=== PATIENT | female | born 1945 | race Caucasian/White ===

== ENCOUNTER 2017-12-18 00:03 | Inpatient (IN) | payer MEDICARE ==
[~2017-12-18] VITALS: Ht 170.2 cm; Wt 81.6 kg
[2017-12-18] MEDS ORDERED: ROPINIROLE HCL 5 MG PO (00:14)
[2017-12-18] MEDS ORDERED: CARBIDOPA LEVODOPA ENTA PO (00:14)
[2017-12-18] MEDS ORDERED: IV NORMAL SALINE 500 ML BAG IV ONE (01:00)
[2017-12-18 01:49] LABS: BASOPHILS % (AUTO) 0.6 % (0.0-2.0); EOSINOPHILS # (AUTO) 0.1 K/uL (0.0-0.7); EOSINOPHILS % (AUTO) 1.6 % (0.0-7.0); HEMATOCRIT 39.3 % (31.2-41.9); LYMPHOCYTES # (AUTO) 1.4 K/uL (20.0-40.0); LYMPHOCYTES % (AUTO) 18.4 % (20.5-51.5); MEAN CORPUSCULAR HEMOGLOBIN 33.5 uug (24.7-32.8); MEAN CORPUSCULAR HGB CONC 33 g/dL (32.3-35.6); MONOCYTES # (AUTO) 0.6 K/uL (2.0-10.0); MONOCYTES % (AUTO) 7.3 % (0.0-11.0); NEUTROPHILS # (AUTO) 5.5 K/uL (1.8-8.9); NEUTROPHILS % (AUTO) 72.1 % (38.5-71.5); PLATELET COUNT (AUTO) 232 K/uL (179-408); RED BLOOD CELL COUNT(AUTO) 3.89 MIL/uL (3.63-4.92); WHITE BLOOD COUNT (AUTO) 7.6 K/uL (3.8-11.8)
[2017-12-18 01:59] LABS: ALANINE AMINOTRANSFERASE 9 U/L (14-59); ALKALINE PHOSPHATASE 86 U/L (50-136); ASPARTATE AMINOTRANSFERASE < 5 U/L (15-37); BILIRUBIN,DIRECT 0.2 mg/dL (0.0-0.2); BILIRUBIN,TOTAL 0.7 mg/dL (0.2-1.0); CARBON DIOXIDE 28 mmol/L (21-32); CHLORIDE 103 mmol/L (98-107); CREATININE 1.1 mg/dL (0.6-1.3); GLUCOSE 127 mg/dL (74-106); TOTAL PROTEIN, SERUM 7.1 g/dL (6.4-8.2); UREA NITROGEN, BLOOD 19 mg/dL (7-18)
--- NOTE | 2017-12-18 02:00 | NUR ---
assumed care of patient at this time, no report from triage nurse. patient is alert/oriented x 3. patient denies any complaint of chest pain, shortness of breath, nausea or vomiting. assisted patient to rest room to obtain urine, helped patient back into stretcher and obtained ekg, and started ivg.
[2017-12-18 03:19] LABS: *BLOOD, URINE NEGATIVE (NEGATIVE); *CLARITY,URINE CLOUDY (CLEAR); *COLOR,URINE DARK YELLOW (YELLOW); *KETONES,URINE 1+ (NEGATIVE); *PROTEIN,URINE 2+ (NEGATIVE); *UROBILINOGEN,URINE 0.2 E.U./dl (NORMAL); LEUKOCYTE ESTERASE ,URINE 1+ (NEGATIVE); NITRITE, URINE POSITIVE (NEGATIVE); UGLUCOSE TRACE (NEGATIVE)
[2017-12-18 03:33] LABS: *BILIRUBIN,URIN 1+ (NEGATIVE)
[2017-12-18 03:39] LABS: WBC,URINE 80-100 /HPF (0-3)
[2017-12-18 03:40] LABS: BACTERIA,URINE MANY /HPF (NONE SEEN)
[2017-12-18 03:42] LABS: CALCIUM OXALATE CRYSTALS,UR MANY /HPF (NONE SEEN); SQUAMOUS EPITHELIAL CELL,UR MODERATE /HPF (NONE SEEN); YEAST,URINE FEW /HPF (NONE SEEN)
--- NOTE | 2017-12-18 03:44 | NUR ---
report called to ady
[2017-12-18 04:30] VITALS: BP 112/55
--- NOTE | 2017-12-18 05:00 | NUR ---
Received patient from ER in stable condition. No acute distress noted. Vital signs within range. New admit to tele unit under PURCHASING SPECIALIST Sari French. Admit Dx Syncope. Sinus rhythm on tele monitor. Patient is A/Ox1-2 with some confusion. Able to make her needs known. Pertinent assessment completed upon admission. Noted with right wrist 20G IV site which is patent & flushing well. Skin is intact. Bed in low position, locked, x2 side rails up. Call light within reach of patient. Will continue to monitor through shift.
[2017-12-18] MEDS ORDERED: HYDROCODONE/APAP 5-325MG TABLET PO PRN (06:15)
[2017-12-18] MEDS ORDERED: MAGNESIUM HYDROXIDE 30 ML LIQUID UDC PO PRN (06:15)
[2017-12-18] MEDS ORDERED: Z GUARD REMEDY PASTE 57 GM TUBE TOP PRN (06:15)
[2017-12-18] MEDS ORDERED: ZOLPIDEM 5 MG TABLET PO PRN (06:15)
[2017-12-18] MEDS ORDERED: ACETAMINOPHEN 325 MG TABLET PO PRN (06:15)
[2017-12-18] MEDS ORDERED: ONDANSETRON 4 MG/2 ML VIAL IV PRN (06:15)
[2017-12-18] MEDS: IV NS 1000 ML 1,000 ML IV PRN ×2 (06:22→23:11)
[2017-12-18] MEDS ORDERED: CEFTRIAXONE 1 G VIAL ONE (06:44)
[2017-12-18] MEDS ORDERED: NORMAL SALINE FLUSH 10 ML DISP.SYRIN ONE (06:45)
[2017-12-18] MEDS ORDERED: IOHEXOL 350 100 ML INFUS..BTL ONE (06:45)
[2017-12-18] MEDS ORDERED: IV NORMAL SALINE 0 ML IV ONE (06:45)
[2017-12-18] MEDS ORDERED: SWABABLE VALVE TRANSFER SET EA MC ONE (06:45)
--- NOTE | 2017-12-18 06:47 | NUR ---
Patient stable through shift. No acute distress. Vital signs within range. Sinus rhythm on the tele monitor with HR of 68. Denies pain & SOB. IV NS running through right wrist at 75cc/hr per MD order. No signs of infiltration noted at IV site. All needs attended to. Medications administered per MD order. Safety measures implemented. Will endorse to day shift nurse.
[2017-12-18] MEDS ORDERED: ENOXAPARIN SODIUM 40 MG/0.4 ML DISP.SYRIN SQ ONE (07:00)
--- NOTE | 2017-12-18 07:20 | NUR ---
RECEIVED REPORT FROM PORT PATROL OFFICER NURSE, PATIENT IN BED AWAKE, NO DISTRESS NOTED AT THIS TIME, BED IN LOW POSITION, SIDE RAILS UP X2, BED ALARM ON.
[2017-12-18] MEDS: CEFTRIAXONE 1 G in IV DEXTROSE 5% 50 ML IV SCH (08:36)
[2017-12-18 11:02] VITALS: BP 135/65
[2017-12-18 12:28] LABS: CARBON DIOXIDE 26 mmol/L (21-32); CHLORIDE 108 mmol/L (98-107); GLUCOSE 126 mg/dL (74-106); POTASSIUM 3.8 mmol/L (3.5-5.1); UREA NITROGEN, BLOOD 19 mg/dL (7-18)
[2017-12-18 12:40] LABS: BASOPHILS % (AUTO) 0.6 % (0.0-2.0); EOSINOPHILS # (AUTO) 0.1 K/uL (0.0-0.7); EOSINOPHILS % (AUTO) 2.3 % (0.0-7.0); HEMATOCRIT 34.6 % (31.2-41.9); HEMOGLOBIN 11.7 g/dL (10.9-14.3); LYMPHOCYTES # (AUTO) 1.5 K/uL (20.0-40.0); LYMPHOCYTES % (AUTO) 26.9 % (20.5-51.5); MEAN CORPUSCULAR HGB CONC 34 g/dL (32.3-35.6); MEAN CORPUSCULAR VOLUME 100.9 fL (75.5-95.3); MONOCYTES # (AUTO) 0.5 K/uL (2.0-10.0); MONOCYTES % (AUTO) 8.5 % (0.0-11.0); NEUTROPHILS # (AUTO) 3.5 K/uL (1.8-8.9); NEUTROPHILS % (AUTO) 61.7 % (38.5-71.5); PLATELET COUNT (AUTO) 212 K/uL (179-408); RED BLOOD CELL COUNT(AUTO) 3.43 MIL/uL (3.63-4.92); WHITE BLOOD COUNT (AUTO) 5.8 K/uL (3.8-11.8)
[2017-12-18 15:34] VITALS: BP 137/53
[2017-12-18] MEDS ORDERED: CARBIDOPA LEVODOPA ENTA PO SCH (17:00)
[2017-12-18] MEDS ORDERED: ROPINIROLE HCL 5 MG PO SCH (17:00)
--- NOTE | 2017-12-18 18:32 | NUR ---
Patient has been cooperative with care, all needs met. No distress noted throughout shift, bed in low position, side rails up x2, bed alarm on. Patient's family brought in own medications, and they were taken down to the pharmacy.
--- NOTE | 2017-12-18 19:30 | NUR ---
Patient stable at start of shift. No acute distress. Vital signs within range. Sinus rhythm on the tele monitor with HR of 87. Pertinent assessment completed. Currently lying in bed comfortably, alert, awake, oriented x2-3 & able to make most of her needs known. IV NS running into right wrist at 75cc/hr. No infiltration noted at site. Bed in low position, bed alarm placed on. Call light within reach. Will continue to monitor through shift.
[2017-12-18 20:00] VITALS: BP 124/63
[2017-12-18] MEDS: CARBIDOPA LEVODOPA ENTA PO SCH (20:00)
[2017-12-18] MEDS: ROPINIROLE 5 MG PO SCH (20:00)
[2017-12-19] VITALS: BP 141/60
[2017-12-19 04:00] VITALS: BP 108/66
[2017-12-19 06:12] LABS: BASOPHILS # (AUTO) 0.1 K/uL (0.0-8.0); BASOPHILS % (AUTO) 0.9 % (0.0-2.0); EOSINOPHILS # (AUTO) 0.2 K/uL (0.0-0.7); EOSINOPHILS % (AUTO) 3.6 % (0.0-7.0); HEMATOCRIT 34.2 % (31.2-41.9); HEMOGLOBIN 11.8 g/dL (10.9-14.3); LYMPHOCYTES # (AUTO) 2.3 K/uL (20.0-40.0); LYMPHOCYTES % (AUTO) 40.5 % (20.5-51.5); MEAN CORPUSCULAR HEMOGLOBIN 34.6 uug (24.7-32.8); MEAN CORPUSCULAR HGB CONC 34 g/dL (32.3-35.6); MEAN CORPUSCULAR VOLUME 100.7 fL (75.5-95.3); MONOCYTES # (AUTO) 0.5 K/uL (2.0-10.0); MONOCYTES % (AUTO) 8.2 % (0.0-11.0); NEUTROPHILS # (AUTO) 2.6 K/uL (1.8-8.9); NEUTROPHILS % (AUTO) 46.8 % (38.5-71.5); PLATELET COUNT (AUTO) 208 K/uL (179-408); WHITE BLOOD COUNT (AUTO) 5.6 K/uL (3.8-11.8)
[2017-12-19] MEDS: PANTOPRAZOLE SODIUM 40 MG TABLET.DR PO SCH (06:27)
[2017-12-19 06:35] LABS: ALANINE AMINOTRANSFERASE 8 U/L (14-59); ALKALINE PHOSPHATASE 74 U/L (50-136); ASPARTATE AMINOTRANSFERASE 8 U/L (15-37); BILIRUBIN,TOTAL 0.5 mg/dL (0.2-1.0); CARBON DIOXIDE 26 mmol/L (21-32); CHLORIDE 109 mmol/L (98-107); CHOLESTEROL 149 mg/dL (<200); GLUCOSE 99 mg/dL (74-106); HDL CHOLESTEROL 37 mg/dL (40-60); MAGNESIUM 1.8 mg/dL (1.8-2.4); PHOSPHOROUS 2.9 mg/dL (2.5-4.9); POTASSIUM 3.7 mmol/L (3.5-5.1); TOTAL PROTEIN, SERUM 6.1 g/dL (6.4-8.2); TRIGLYCERIDES 156 MG/DL (30-150); UREA NITROGEN, BLOOD 18 mg/dL (7-18)
--- NOTE | 2017-12-19 06:37 | NUR ---
STABLE THROUGH SHIFT. VITAL SIGNS WITHIN RANGE. SINUS RHYTHM ON TELE MONITOR WITH HR OF 68. ALL NEEDS ATTENDED TO. PATIENT KEPT CLEAN, DRY, CHANGED PER DIAPER SOILING. NOTED WITH INCREASED CONFUSION DURING THE SHIFT. PULLED OUT IV LINE X1 DURING THE SHIFT. IV REINSERTED INTO RIGHT HAND 22G. ALL MEDICATIONS ADMINISTERED PER MD ORDER. SAFETY MEASURES IMPLEMENTED. CALL LIGHT IN REACH. WILL ENDORSE TO ONCOMING SHIFT.
[2017-12-19 06:44] LABS: THYROID STIMULATING HORMONE 6.458 mIU/mL (0.358-3.740)
--- NOTE | 2017-12-19 07:10 | NUR ---
RECEIVED REPORT FROM BREEDER HEN SERVICE TECHNICIAN NURSE, PATIENT IN BED ASLEEP, NO DISTRESS NOTED AT THIS TIME, BED IN LOW POSITION, SIDE RAILS UP X2. BED ALARM SET.
[2017-12-19] MEDS ORDERED: SWABABLE VALVE TRANSFER SET EA MC ONE (08:20)
[2017-12-19] MEDS: ROPINIROLE 5 MG PO SCH ×4 (09:21→20:54)
[2017-12-19] MEDS: CARBIDOPA LEVODOPA ENTA PO SCH ×4 (09:21→20:54)
[2017-12-19] MEDS: ENOXAPARIN SODIUM 40 MG/0.4 ML DISP.SYRIN SQ SCH (09:24)
[2017-12-19] MEDS: CEFTRIAXONE 1 G in IV DEXTROSE 5% 50 ML IV SCH (09:27)
[2017-12-19 11:47] VITALS: BP 134/66
[2017-12-19] MEDS ORDERED: LORAZEPAM 2 MG/1 ML VIAL IV PRN (13:30)
[2017-12-19 15:50] VITALS: BP 127/60
[2017-12-19] MEDS: IV NS 1000 ML 1,000 ML IV PRN (18:58)
[2017-12-19 20:00] VITALS: BP 128/63
--- NOTE | 2017-12-19 20:00 | NUR ---
RECEIVED PATIENT AWAKE IN BED. ALERT TO SELF ONLY. DENIES PAIN OR DISCOMFORT. NO FACIAL GRIMACE NOTED. NO RESP. DISTRESS NOTED. ON RA. PATIENT ON TELE SR. VS WNL. IVF INFUSING WELL TO RIGHT FA. BED ALARM ON. CALL LIGHT IN REACH. ALL NEEDS ATTENDED. WILL CONTINUE TO MONITOR AND ASSESS.
[2017-12-20] VITALS: BP 135/68
[2017-12-20 04:00] VITALS: BP 127/63
[2017-12-20] MEDS: PANTOPRAZOLE SODIUM 40 MG TABLET.DR PO SCH (06:00)
--- NOTE | 2017-12-20 06:35 | NUR ---
PATIENT ASLEEP IN BED. SLEPT WELL. IVF INFUSING WELL. BED ALARM ON. ALL NEEDS ATTENDED. WILL CONTINUE TO MONITOR AND ASSESS.
--- NOTE | 2017-12-20 07:09 | NUR ---
ON TELE SR.
[2017-12-20 07:14] LABS: BASOPHILS % (AUTO) 0.7 % (0.0-2.0); EOSINOPHILS # (AUTO) 0.3 K/uL (0.0-0.7); EOSINOPHILS % (AUTO) 4.7 % (0.0-7.0); HEMATOCRIT 34.3 % (31.2-41.9); HEMOGLOBIN 11.8 g/dL (10.9-14.3); LYMPHOCYTES # (AUTO) 2.3 K/uL (20.0-40.0); MEAN CORPUSCULAR HEMOGLOBIN 34.4 uug (24.7-32.8); MEAN CORPUSCULAR HGB CONC 34 g/dL (32.3-35.6); MEAN CORPUSCULAR VOLUME 100.3 fL (75.5-95.3); MONOCYTES # (AUTO) 0.5 K/uL (2.0-10.0); MONOCYTES % (AUTO) 8.7 % (0.0-11.0); NEUTROPHILS # (AUTO) 2.6 K/uL (1.8-8.9); NEUTROPHILS % (AUTO) 45.9 % (38.5-71.5); PLATELET COUNT (AUTO) 206 K/uL (179-408); RED BLOOD CELL COUNT(AUTO) 3.42 MIL/uL (3.63-4.92); WHITE BLOOD COUNT (AUTO) 5.6 K/uL (3.8-11.8)
[2017-12-20 07:22] LABS: CARBON DIOXIDE 24 mmol/L (21-32); CHLORIDE 106 mmol/L (98-107); CREATININE 0.8 mg/dL (0.6-1.3); GLUCOSE 106 mg/dL (74-106); MAGNESIUM 1.8 mg/dL (1.8-2.4); PHOSPHOROUS 3.4 mg/dL (2.5-4.9); POTASSIUM 3.6 mmol/L (3.5-5.1); UREA NITROGEN, BLOOD 12 mg/dL (7-18)
--- NOTE | 2017-12-20 08:00 | NUR ---
AWAKE FORGETFUL ORTX1 NAME BUT ABLE TO FOLLOW SIMPLE DIRECTION ON FALL AND ASPIRATION PRECAUTION BED ALARM ON AND CALL LIGHT IN REACH
[2017-12-20] MEDS: CEFTRIAXONE 1 G in IV DEXTROSE 5% 50 ML IV SCH (08:46)
[2017-12-20] MEDS: ENOXAPARIN SODIUM 40 MG/0.4 ML DISP.SYRIN SQ SCH (08:47)
[2017-12-20] MEDS: ROPINIROLE 5 MG PO SCH ×4 (08:49→20:08)
[2017-12-20] MEDS: CARBIDOPA LEVODOPA ENTA PO SCH ×4 (08:49→20:08)
[2017-12-20] MEDS: IV NS 1000 ML 1,000 ML IV PRN (08:49)
--- NOTE | 2017-12-20 10:00 | NUR ---
OOB UP AMBULATE WITH PT IN THE [address] DOING WELL DR PARSON SEEN PATIENT THIS AM AND NEW ORDER IN CHART
[2017-12-20 11:17] VITALS: BP 138/58
--- NOTE | 2017-12-20 12:00 | NUR ---
EEG DOME AT BEDSIDE SUDHA PROCEDURE WELL
[2017-12-20 15:41] VITALS: BP 132/56
--- NOTE | 2017-12-20 18:00 | NUR ---
PATIENT WILL DISCHARGE TO ARU AT [facility] TO NIGHT WITH SAME ORDERED AND FAMILY DAUGHTER WAS INFORM ,AWARE OF D/C TODAY
--- NOTE | 2017-12-20 18:15 | NUR ---
STABLE CONDITION ,NO ACUTE DISTRESS SAFETY MEASURE PROVIDED CALL LIGHT IN REACH AND BED ALARM ON
[2017-12-20] MEDS ORDERED: INFLUENZA VACCINE 2018-2019 0.5 ML DISP.SYRIN IM ONE (18:30)
--- NOTE | 2017-12-20 19:10 | NUR ---
RECEIVED PT AWAKE ON BED, AAOX1, NO SIGNS OF ACUTE DISTRESS NOTED AT THIS TIME. IV SITE ON RFA PATENT AND INTACT. SAFETY MEASURES INITIATED, PLACED BED ON LOW AND LOCKED POSITION, PT BELONGINGS AND CALL MARIN WITHIN REACH.
[2017-12-20 19:23] VITALS: BP 124/56
--- NOTE | 2017-12-20 21:30 | NUR ---
PT DISCHARGE TO REHAB UNIT IN STABLE CONDITION VIA WHEELCHAIR. SBAR REPORT GIVEN TO MACIEL ZAVALA. DISCHARGE PROTOCOL FOLLOWED. ALL DUE MEDS GIVEN ORDERED. IV SITE ON RFA, PATENT AND INTACT. ALL NEEDS ATTENDED AND MET.
[2017-12-20] MEDS ORDERED: CEFT1VIA15 IV (22:10)
[2017-12-20] MEDS ORDERED: MAGN400O6 PO (22:10)
[2017-12-20] MEDS ORDERED: ACET-2154 PO (22:10)
[2017-12-20] MEDS ORDERED: PANT40TA2 PO (22:10)
[2017-12-20] MEDS ORDERED: ENOX40DI SQ (22:10)
[2017-12-20] MEDS ORDERED: LORA2VIA33 IV (22:10)
[2017-12-20] MEDS ORDERED: ZOLP5TAB2 PO (22:10)
[2017-12-20] MEDS ORDERED: ONDA4VIA52 IV (22:10)
[2017-12-20] MEDS ORDERED: HYDR-3326 PO (22:10)
== END 2017-12-20 21:52 | DRG 689 ==
LOC: ER 00:09 → MED 04:10 → TELE 04:39 → MED 12-20 16:44
PROVIDERS: ADMIT Nurse Practitioner Acute Care; ATTEND Nurse Practitioner Acute Care
DX: N39.0 Urinary tract infection, site not specified (principal); G93.41 Metabolic encephalopathy; J96.01 Acute respiratory failure with hypoxia; F02.81 Dementia in other diseases classified elsewhere, unspecified severity, with behavioral disturbance; E86.0 Dehydration; R55 Syncope and collapse; R94.31 Abnormal electrocardiogram [ECG] [EKG]; G30.9 Alzheimer's disease, unspecified; G20 Parkinson's disease; Z79.899 Other long term (current) drug therapy; I65.23 Occlusion and stenosis of bilateral carotid arteries; E78.1 Pure hyperglyceridemia; I08.1 Rheumatic disorders of both mitral and tricuspid valves; R56.9 Unspecified convulsions
CPT/HCPCS: 36415; 70030-TC; 70450; 71045; 83735; 84100; 84443; 85025; 85730; 87040; 87077; 87086; 90686; 93005; 93307; 95819; 97110; 97116; 97530; A4663; G0378; J0696; J1650; J2060; J3490; J7030; J7050; J7060; Q9967

== ENCOUNTER 2017-12-20 17:56 | Inpatient (IN) | payer MEDICARE ==
[~2017-12-20] VITALS: Ht 170.2 cm; Wt 90.7 kg
[~2017-12-20 17:56] MED LIST: CARBIDOPA LEVODOPA ENTA PO; ROPINIROLE HCL 5 MG PO
[2017-12-20] MEDS ORDERED: Z GUARD REMEDY PASTE 57 GM TUBE TOP PRN (22:00)
[2017-12-20] MEDS ORDERED: ONDA4VIA52 IV (22:10)
[2017-12-20] MEDS ORDERED: CEFT1VIA15 IV (22:10)
[2017-12-20] MEDS ORDERED: ACET-2154 PO (22:10)
[2017-12-20] MEDS ORDERED: LORA2VIA33 IV (22:10)
[2017-12-20] MEDS ORDERED: ZOLP5TAB2 PO (22:10)
[2017-12-20] MEDS ORDERED: HYDR-3326 PO (22:10)
[2017-12-20] MEDS ORDERED: ENOX40DI SQ (22:10)
[2017-12-20] MEDS ORDERED: MAGN400O6 PO (22:10)
[2017-12-20] MEDS ORDERED: PANT40TA2 PO (22:10)
[2017-12-20 22:24] VITALS: BP 142/77
--- NOTE | 2017-12-20 22:45 | NUR ---
Dr. Escobedo made aware of admission. Informed Dr. Rebolledo of pt admission and informed of med recon.
--- NOTE | 2017-12-20 23:36 | NUR ---
Admitting this 72 y/o female from 2nd floor med-surg to acute rehab with diagnosis of Convulsive Syncope, Parkinson's Disease, and Metabolic Encephalopathy. Arrived via wheelchair, assisted into bed. No acute distress noted. All routine admission care done. A/O x 1, to self. Seizure precautions implemented. Verbally responsive and able to make needs known. Denies pain or discomfort at this time. Pictures taken and placed in chart. Oriented to unit and room. All safety measures and fall precautions maintained. Call light and all personal belongings within reach. Will continue to monitor.
[2017-12-21 07:01] VITALS: BP 120/56
[2017-12-21 08:30] VITALS: BP 146/73
--- NOTE | 2017-12-21 10:26 | NUR ---
Received pt. in bed with eyes closed comfortable. Pt. A/OX1 to self only, frequent re-orientation provided. Pt. in no acute distress. Denies CP or SOB. Notified Dr. Rebolledo for Med MD sharath on-site to complete recon. All safety measures and fall precaution in placed. RFA PIV C/D/I. All pt. need promptly attended at this time. Kept pt. clean and dry. Will continue to monitor pt. accordingly.
[2017-12-21] MEDS ORDERED: ONDANSETRON 4 MG/2 ML VIAL IV PRN (11:30)
[2017-12-21] MEDS ORDERED: HYDROCODONE/APAP 5-325MG TABLET PO PRN (11:30)
[2017-12-21] MEDS ORDERED: MAGNESIUM HYDROXIDE 30 ML LIQUID UDC PO PRN (11:30)
--- NOTE | 2017-12-21 12:09 | NUR ---
WOUND CARE CONSULT: PT PRESENTS WITH INCONTINENCE, DRY ESCHAR TO RT LATERAL ANKLE AND MOIST AREAS TO SKIN FOLDS, PRESENT ON ADMISSION. RECOMMENDATIONS MADE FOR SKIN PROTECTION AND CARE. DISCUSSED WITH NURSING STAFF. PT ABLE TO ASSIST WITH TURNING AND REPOSITIONING IN BED. WILL SEE PRN. GOTTI IN AGREEMENT WITH PLAN OF CARE. Addendum: 12/21/17 at 1211 by KING ESCAMILLA RN Amended: Links added.
[2017-12-21] MEDS: [UNRECOGNIZED DRUG - OTHER] PO SCH ×3 (12:27→20:31)
[2017-12-21] MEDS: ROPINIROLE 5 MG PO SCH ×3 (12:27→20:30)
[2017-12-21] MEDS: [UNRECOGNIZED DRUG - OTHER] PO SCH ×3 (12:27→20:30)
[2017-12-21] MEDS: ENOXAPARIN SODIUM 40 MG/0.4 ML DISP.SYRIN SQ SCH (12:28)
[2017-12-21] MEDS: CEFTRIAXONE 1 G in IV DEXTROSE 5% 50 ML IV SCH (12:50)
[2017-12-21] MEDS ORDERED: CARBIDOPA LEVODOPA ENTA PO SCH (13:00)
[2017-12-21] MEDS ORDERED: ROPINIROLE HCL 5 MG PO SCH (13:00)
[2017-12-21 16:44] VITALS: BP 131/100
--- NOTE | 2017-12-21 18:34 | NUR ---
EOS Note: No significant changed during this shift. Pt. A/OX1 to self only able to follow simple commands. All due medications given as ordered and tolerated well. Pt. seen and evaluated today by Dr. Rebolledo, med recon completed by . Pt. on IV ABX for UTI till further order, dose given today as ordered, no ASE noted. Pt. eval by wound nurse today with recommendation to apply mepilex border to RT. lateral ankle for dry eschar. PIV on RFA intact and patent.All pt. needs promptly provided and met. Safety measures in place. Call light and all frequently used items within pt. reach. Will endorse to oncoming shift accordingly.
[2017-12-21 20:00] VITALS: BP 134/61
--- NOTE | 2017-12-21 20:10 | NUR ---
Patient received sitting in bed, AAO X2 by name and date of . No acute distress or SOB noted. Able to makes needs known. On room air. Brief assessment done. No Complain of pain at this time. IV line on the RT forearm G 22, no sign of inflammation. Safety measures maintained. Bed in low position, brake on, side rails upx2. Call light and personal belongings within reach. Continue to monitor
[2017-12-21] MEDS: LORAZEPAM 2 MG/1 ML VIAL IV PRN (22:29)
--- NOTE | 2017-12-21 22:30 | NUR ---
Patient tried to get out of bed multiple times. Looked agitated. VS stable. Lorazepam 0.5 mg IV administered. Continue to monitor.
[2017-12-22] MEDS: ZOLPIDEM 5 MG TABLET PO PRN ×2 (00:21→21:27)
--- NOTE | 2017-12-22 00:25 | NUR ---
Still tried to get out of bed multiple times. Confused. VS stable. Re-oriented multiple times. Zolpidem 5 mg tab administered as ordered. Continue to monitor.
[2017-12-22 04:00] VITALS: BP 153/84
--- NOTE | 2017-12-22 05:42 | NUR ---
End of the shift note Patient was confused and agitated last night and tried to get out of bed multiple times. PRN medication given as ordered (Ativan 0.5 mg IV @ 2229 and Ambien 5 mg PO @ 0021). After that, she was stable and had a good sleep due to PRN medication. No sign of acute distress or SOB noted. On room air. No complain of pain. Medication given as ordered. Safety measures maintained. Fall precaution maintained. kept her clean and dry. applied Z Guard on her skin folds. Both heels off load by a pillow. All needs attended promptly. Bed brake and alarm on, side rails upx2. Call light and personal belonging within reach. Continue to monitor and will endorse to the day shift nurse accordingly.
[2017-12-22] MEDS: PANTOPRAZOLE SODIUM 40 MG TABLET.DR PO SCH (06:18)
--- NOTE | 2017-12-22 07:36 | NUR ---
Received pt. in bed with eyes closed comfortable. Pt. in no acute distress resting well. All safety measures and fall precaution in placed. RFA PIV C/D/I. Kept pt. clean and dry. Will continue to monitor pt. accordingly.
[2017-12-22 08:00] VITALS: BP 155/61
[2017-12-22] MEDS: ROPINIROLE 5 MG PO SCH ×4 (08:58→20:26)
[2017-12-22] MEDS: [UNRECOGNIZED DRUG - OTHER] PO SCH ×4 (08:58→20:26)
[2017-12-22] MEDS: [UNRECOGNIZED DRUG - OTHER] PO SCH ×4 (08:58→20:26)
[2017-12-22] MEDS: ENOXAPARIN SODIUM 40 MG/0.4 ML DISP.SYRIN SQ SCH (08:59)
[2017-12-22] MEDS: AMLODIPINE 5 MG TABLET PO SCH (11:10)
[2017-12-22] MEDS: CEFTRIAXONE 1 G in IV DEXTROSE 5% 50 ML IV SCH (11:21)
[2017-12-22 16:25] VITALS: BP 116/60
--- NOTE | 2017-12-22 18:16 | NUR ---
EOS Note: No significant changed during this shift. Pt. A/OX1 to self only able to follow simple commands. All due medications given as ordered and tolerated well. Notified Dr. Rebolledo that pt. has elevated BP this AM, MD started pt. on Amlodipine 5 mg PO QD, orders noted and carried out. Pt. received last dose of IV ABX (Ceftriaxone) for UTI no ASE noted. Dr. Rebolledo D/C Ceftriaxone and switched to PO ATB (Keflex). PIV D/C 2/2 non-usage. Applied new mepilex to RT. lateral ankle for dry eschar. All pt. needs promptly provided and met. Safety measures in place. Call light and all frequently used items within pt. reach. Will endorse to oncoming shift accordingly.
--- NOTE | 2017-12-22 19:33 | NUR ---
Patient received sitting in bed, AAO X2 by name and date of . No acute distress or SOB noted. Able to makes needs known. On room air. Brief assessment done. No Complain of pain at this time. Safety measures maintained. Bed in low position, brake on, side rails upx2. Call light and personal belongings within reach. Continue to monitor.
[2017-12-22 20:29] VITALS: BP 136/58
[2017-12-22] MEDS: CEPHALEXIN MONOHYDRATE 500 MG CAPSULE PO SCH (21:26)
--- NOTE | 2017-12-22 21:50 | NUR ---
Lateral side of Lt arm has redness, swelling and is warm to touch. Continue to monitor.
[2017-12-22] MEDS: LORAZEPAM 2 MG/1 ML VIAL IV PRN (23:51)
--- NOTE | 2017-12-23 00:01 | NUR ---
Pt awake, alert, oriented to self. Few verbalizations. Appears extremely anxious. Denies pain/discomfort. New IV access established at left hand with gauge 22 angiocath and converted to Heplock. IV Ativan given. Psychological support offered. Nursing comfort measures observed. Fall and safety precautions maintained at all times. Will continue to monitor closely.
[2017-12-23 04:31] VITALS: BP 148/69
[2017-12-23] MEDS: PANTOPRAZOLE SODIUM 40 MG TABLET.DR PO SCH (06:12)
[2017-12-23] MEDS: CEPHALEXIN MONOHYDRATE 500 MG CAPSULE PO SCH ×3 (06:12→22:10)
--- NOTE | 2017-12-23 06:30 | NUR ---
Smiling a lot this AM. Nods when asked if able to sleep well. No further anxiety episodes noted. All needs attended and met. In no apparent acute distress. Safety and fall precautions maintained at all times.
[2017-12-23 06:53] LABS: BASOPHILS % (AUTO) 0.7 % (0.0-2.0); EOSINOPHILS # (AUTO) 0.2 K/uL (0.0-0.7); EOSINOPHILS % (AUTO) 4.5 % (0.0-7.0); HEMATOCRIT 35.1 % (31.2-41.9); HEMOGLOBIN 12.2 g/dL (10.9-14.3); LYMPHOCYTES # (AUTO) 1.9 K/uL (20.0-40.0); LYMPHOCYTES % (AUTO) 38.2 % (20.5-51.5); MEAN CORPUSCULAR HEMOGLOBIN 34.6 uug (24.7-32.8); MEAN CORPUSCULAR HGB CONC 35 g/dL (32.3-35.6); MEAN CORPUSCULAR VOLUME 99.7 fL (75.5-95.3); MONOCYTES # (AUTO) 0.6 K/uL (2.0-10.0); MONOCYTES % (AUTO) 12.1 % (0.0-11.0); NEUTROPHILS # (AUTO) 2.2 K/uL (1.8-8.9); NEUTROPHILS % (AUTO) 44.5 % (38.5-71.5); PLATELET COUNT (AUTO) 219 K/uL (179-408); RED BLOOD CELL COUNT(AUTO) 3.53 MIL/uL (3.63-4.92)
[2017-12-23 07:00] LABS: CARBON DIOXIDE 28 mmol/L (21-32); CHLORIDE 104 mmol/L (98-107); CREATININE 0.9 mg/dL (0.6-1.3); GLUCOSE 101 mg/dL (74-106); MAGNESIUM 1.9 mg/dL (1.8-2.4); PHOSPHOROUS 3.6 mg/dL (2.5-4.9); POTASSIUM 3.3 mmol/L (3.5-5.1); UREA NITROGEN, BLOOD 12 mg/dL (7-18)
[2017-12-23 08:00] VITALS: BP 139/66
[2017-12-23] MEDS ORDERED: POTASSIUM CHLORIDE 20 MEQ TAB.PRT.SR PO ONE (08:15)
[2017-12-23] MEDS: [UNRECOGNIZED DRUG - OTHER] PO SCH ×4 (08:38→20:38)
[2017-12-23] MEDS: [UNRECOGNIZED DRUG - OTHER] PO SCH ×4 (08:39→20:38)
[2017-12-23] MEDS: ROPINIROLE 5 MG PO SCH ×4 (08:39→20:38)
[2017-12-23] MEDS: AMLODIPINE 5 MG TABLET PO SCH (08:39)
[2017-12-23] MEDS: ENOXAPARIN SODIUM 40 MG/0.4 ML DISP.SYRIN SQ SCH (08:43)
--- NOTE | 2017-12-23 13:16 | NUR ---
INTERDISCIPLINARY TEAM CONFERENCE
[2017-12-23 15:55] VITALS: BP 121/68
[2017-12-23 20:11] VITALS: BP 121/61
[2017-12-24] MEDS ORDERED: TEMAZEPAM 7.5 MG CAPSULE PO ONE (00:30)
--- NOTE | 2017-12-24 00:30 | NUR ---
Patient seemed agitated, tried to get out of bed multiple times. Confused. VS stable. Re-oriented multiple times. Called on-call doctor. Got order of Temazepam 7.5 mg capsule. Administered medication. Continue to monitor.
[2017-12-24] MEDS: CEPHALEXIN MONOHYDRATE 500 MG CAPSULE PO SCH ×3 (05:55→20:42)
[2017-12-24] MEDS: PANTOPRAZOLE SODIUM 40 MG TABLET.DR PO SCH (06:00)
--- NOTE | 2017-12-24 06:18 | NUR ---
End of the shift note Patient was confused and agitated last night and tried to get out of bed multiple times. She didn't have good sleep despite Temazepam 7.5 mg tab last night. No sign of acute distress or SOB noted. On room air. No complain of pain. Medication given as ordered. Safety measures maintained. Fall precaution maintained. kept her clean and dry. Applied Z Guard on her skin folds. Both heels off load by a pillow. All needs attended promptly. Bed brake and alarm on, side rails upx3. Call light and personal belonging within reach. Continue to monitor and will endorse to the day shift nurse accordingly.
--- NOTE | 2017-12-24 07:53 | NUR ---
Received pt. in bed with eyes open and comfortable. Pt. A/OX1 to self only, frequent re-orientation provided. Pt. in no acute distress. Denies CP or SOB. Per previous shift report, pt. did not sleep well and was agitated, MD aware. All safety measures and fall precaution in placed. All pt. need promptly attended at this time. Kept pt. clean and dry. Will continue to monitor pt. accordingly.
[2017-12-24 08:00] VITALS: BP 125/61
[2017-12-24] MEDS: [UNRECOGNIZED DRUG - OTHER] PO SCH ×4 (08:54→20:42)
[2017-12-24] MEDS: AMLODIPINE 5 MG TABLET PO SCH (08:54)
[2017-12-24] MEDS: ROPINIROLE 5 MG PO SCH ×4 (08:54→20:42)
[2017-12-24] MEDS: [UNRECOGNIZED DRUG - OTHER] PO SCH ×4 (08:55→20:42)
[2017-12-24] MEDS: ENOXAPARIN SODIUM 40 MG/0.4 ML DISP.SYRIN SQ SCH (08:56)
[2017-12-24 09:59] LABS: CARBON DIOXIDE 27 mmol/L (21-32); CHLORIDE 103 mmol/L (98-107); GLUCOSE 139 mg/dL (74-106); POTASSIUM 3.4 mmol/L (3.5-5.1); UREA NITROGEN, BLOOD 15 mg/dL (7-18)
[2017-12-24 16:06] VITALS: BP 116/66
[2017-12-24 16:08] VITALS: BP_SYST 108; BP_SYST 116; BP_DIAS 47; BP_DIAS 66
--- NOTE | 2017-12-24 18:30 | NUR ---
EOS Note: No significant changed during this shift. Pt. A/OX1 to self only with confusion but able to follow simple commands. No acute distress noted, denies CP or SOB. No c/o pain or discomfort. All due medications given as ordered and tolerated well. Pt. on PO ABT for UTI, no ASE noted. No new skin condition noted. Pt. OOB as tolerated. Kept pt. clean and dry. All pt. needs promptly provided and met. Safety measures and fall precaution in place. Call light and all frequently used items within pt. reach. Will endorse to oncoming shift accordingly.
[2017-12-24 20:12] VITALS: BP 116/63
[2017-12-25 05:32] VITALS: BP 125/56
[2017-12-25] MEDS: PANTOPRAZOLE SODIUM 40 MG TABLET.DR PO SCH (06:09)
[2017-12-25] MEDS: CEPHALEXIN MONOHYDRATE 500 MG CAPSULE PO SCH ×3 (06:09→21:24)
--- NOTE | 2017-12-25 07:41 | NUR ---
Received pt. in bed with eyes closed and comfortable. Pt. in no acute distress. All safety measures and fall precaution in placed. All pt. need promptly attended at this time. Kept pt. clean and dry. Will continue to monitor pt. accordingly.
[2017-12-25 08:00] VITALS: BP 134/84
[2017-12-25] MEDS: ROPINIROLE 5 MG PO SCH ×4 (08:41→21:25)
[2017-12-25] MEDS: [UNRECOGNIZED DRUG - OTHER] PO SCH ×4 (08:41→21:24)
[2017-12-25] MEDS: [UNRECOGNIZED DRUG - OTHER] PO SCH ×4 (08:41→21:25)
[2017-12-25] MEDS: AMLODIPINE 5 MG TABLET PO SCH (08:47)
[2017-12-25] MEDS: ENOXAPARIN SODIUM 40 MG/0.4 ML DISP.SYRIN SQ SCH (08:49)
[2017-12-25 16:35] VITALS: BP 120/75
--- NOTE | 2017-12-25 18:42 | NUR ---
EOS Note: No significant changed during this shift. Pt. A/OX1 to self only with confusion but able to follow simple commands. No acute distress noted, denies CP or SOB. No c/o pain or discomfort. All due medications given as ordered and tolerated well. Pt. remain on PO ABT for UTI, no ASE noted. No new skin condition noted. Pt. OOB as tolerated. Kept pt. clean and dry. DTR visited pt today and brought it home medication as requested by in house pharmacy. All pt. needs promptly provided and met. Safety measures and fall precaution in place. Call light and all frequently used items within pt. reach. Will endorse to oncoming shift accordingly.
--- NOTE | 2017-12-25 19:30 | NUR ---
Received pt sitting upright in bed and having some snacks. AAO x2, very forgetful. No acute distress noted. No c/o pain or discomfort at this time, no facial cues for pain noted. Safety measures maintained. Bed alarm on. Call light and personal belongings within reach. Encouraged to use call light and ask for help when needing to get OOB. Will continue to monitor.
[2017-12-25 20:00] VITALS: BP 124/74
[2017-12-25] MEDS: ACETAMINOPHEN 325 MG TABLET PO PRN (21:25)
[2017-12-26 05:00] VITALS: BP 125/64
[2017-12-26] MEDS: CEPHALEXIN MONOHYDRATE 500 MG CAPSULE PO SCH ×3 (05:53→21:07)
[2017-12-26] MEDS: PANTOPRAZOLE SODIUM 40 MG TABLET.DR PO SCH (06:00)
[2017-12-26 07:26] LABS: BASOPHILS # (AUTO) 0.1 K/uL (0.0-8.0); BASOPHILS % (AUTO) 0.9 % (0.0-2.0); EOSINOPHILS # (AUTO) 0.2 K/uL (0.0-0.7); EOSINOPHILS % (AUTO) 3.8 % (0.0-7.0); HEMATOCRIT 35.8 % (31.2-41.9); HEMOGLOBIN 12.6 g/dL (10.9-14.3); LYMPHOCYTES # (AUTO) 1.9 K/uL (20.0-40.0); LYMPHOCYTES % (AUTO) 33.3 % (20.5-51.5); MEAN CORPUSCULAR HGB CONC 35 g/dL (32.3-35.6); MEAN CORPUSCULAR VOLUME 99.5 fL (75.5-95.3); MONOCYTES # (AUTO) 0.6 K/uL (2.0-10.0); NEUTROPHILS # (AUTO) 2.9 K/uL (1.8-8.9); PLATELET COUNT (AUTO) 256 K/uL (179-408); RED BLOOD CELL COUNT(AUTO) 3.59 MIL/uL (3.63-4.92); WHITE BLOOD COUNT (AUTO) 5.6 K/uL (3.8-11.8)
[2017-12-26 07:47] LABS: CARBON DIOXIDE 27 mmol/L (21-32); CHLORIDE 103 mmol/L (98-107); GLUCOSE 106 mg/dL (74-106); POTASSIUM 3.7 mmol/L (3.5-5.1); UREA NITROGEN, BLOOD 16 mg/dL (7-18)
[2017-12-26] MEDS: AMLODIPINE 5 MG TABLET PO SCH (09:00)
[2017-12-26] MEDS: ROPINIROLE 5 MG PO SCH ×4 (09:49→21:07)
[2017-12-26] MEDS: [UNRECOGNIZED DRUG - OTHER] PO SCH ×4 (09:49→21:07)
[2017-12-26] MEDS: [UNRECOGNIZED DRUG - OTHER] PO SCH ×4 (09:52→21:07)
[2017-12-26] MEDS: ENOXAPARIN SODIUM 40 MG/0.4 ML DISP.SYRIN SQ SCH (09:57)
[2017-12-26 11:02] VITALS: BP 111/55
--- NOTE | 2017-12-26 14:34 | NUR ---
SBAR report received, board updated. Pt assessed, no acute distress, SOB, or pain. AAOx2, forgetful. Pt compliant with routine medication administration and therapy as offered. Bed in locked and lowest position with side rails up x2, bed alarm on. All fall, safety, and comfort measures implemented. Call light and personal items within reach. Will continue to monitor.
[2017-12-26 16:00] VITALS: BP 122/63
[2017-12-26 20:00] VITALS: BP 100/49
[2017-12-27 04:00] VITALS: BP 138/49
[2017-12-27] MEDS: PANTOPRAZOLE SODIUM 40 MG TABLET.DR PO SCH (06:06)
--- NOTE | 2017-12-27 06:21 | NUR ---
End of the shift note Patient was stable last night. 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 VS stable. No sign of acute distress or SOB noted. On room air. No complain of pain. Medication given as ordered. Safety measures maintained. Fall precaution maintained. kept her clean and dry. Applied Z Guard on her skin folds. Both heels off load by a pillow. All needs attended promptly. Bed brake and alarm on, side rails upx3. Call light and personal belonging within reach. Continue to monitor and will endorse to the day shift nurse accordingly.
[2017-12-27 07:15] VITALS: BP 129/66
--- NOTE | 2017-12-27 08:00 | NUR ---
Received a 72 y/o female patient sitting in bed, AAO X1 by name and date of . No acute distress or SOB noted.breathing via room air. No Complain of pain at this time. Safety measures maintained. Bed in low position side rails upx2. Call light and personal belongings within reach. Continue to monitor
[2017-12-27] MEDS: [UNRECOGNIZED DRUG - OTHER] PO SCH ×4 (09:32→20:58)
[2017-12-27] MEDS: [UNRECOGNIZED DRUG - OTHER] PO SCH ×4 (09:33→20:58)
[2017-12-27] MEDS: ROPINIROLE 5 MG PO SCH ×4 (09:33→20:58)
[2017-12-27] MEDS: AMLODIPINE 5 MG TABLET PO SCH (09:33)
[2017-12-27] MEDS: ENOXAPARIN SODIUM 40 MG/0.4 ML DISP.SYRIN SQ SCH (09:39)
[2017-12-27 15:42] VITALS: BP 146/68
[2017-12-27 21:00] VITALS: BP 139/64
[2017-12-28 05:12] VITALS: BP 136/60
[2017-12-28] MEDS: PANTOPRAZOLE SODIUM 40 MG TABLET.DR PO SCH (06:02)
[2017-12-28 08:00] VITALS: BP 131/69
[2017-12-28] MEDS: AMLODIPINE 5 MG TABLET PO SCH (08:21)
[2017-12-28] MEDS: [UNRECOGNIZED DRUG - OTHER] PO SCH ×4 (08:21→20:58)
[2017-12-28] MEDS: [UNRECOGNIZED DRUG - OTHER] PO SCH ×4 (08:21→20:58)
[2017-12-28] MEDS: ROPINIROLE 5 MG PO SCH ×4 (08:21→20:58)
--- NOTE | 2017-12-28 08:45 | NUR ---
Received patient, awake, alert x2. With periods of confusion. Not in any form of distress. Not in apparent pain. Encouraged to call for needs. Call light within reach.
--- NOTE | 2017-12-28 10:30 | NUR ---
Up with physical therapy, tolerating well. Denies any pain.
[2017-12-28 16:20] VITALS: BP 114/54
--- NOTE | 2017-12-28 18:00 | NUR ---
Seen and examined by Dr. Matt. Mentioned to that relative, Zaki visited and was concerned about patient, claimed her passed 2-3 months ago. Patient was withdrawn and relative said that patient's passing had a big effect on her. Psyche consult requested by Dr. Escobedo. Dr. Bello informed.
[2017-12-28 19:52] VITALS: BP 105/57
--- NOTE | 2017-12-28 20:05 | NUR ---
Patient received in bed, watching TV. AAO X2 by name and date of . No acute distress or SOB noted. Able to makes needs known. On room air. Brief assessment done. No Complain of pain at this time. Safety measures maintained. Bed in low position, brake on, side rails upx2. Call light and personal belongings within reach. Continue to monitor.
[2017-12-29] MEDS: PANTOPRAZOLE SODIUM 40 MG TABLET.DR PO SCH (06:05)
--- NOTE | 2017-12-29 06:27 | NUR ---
End of the shift note Patient was stable last night except some sign of agitation at 2300. VS stable. No sign of acute distress or SOB noted. On room air. No complain of pain. Medication given as ordered. Safety measures maintained. Fall precaution maintained. kept her clean and dry. Applied Z Guard on her skin folds. Both heels off load by a pillow. All needs attended promptly. Bed brake and alarm on, side rails upx3. Call light and personal belonging within reach. Continue to monitor and will endorse to the day shift nurse accordingly.
[2017-12-29] MEDS: [UNRECOGNIZED DRUG - OTHER] PO SCH ×4 (09:10→20:41)
[2017-12-29] MEDS: [UNRECOGNIZED DRUG - OTHER] PO SCH ×4 (09:10→20:42)
[2017-12-29] MEDS: ROPINIROLE 5 MG PO SCH ×4 (09:10→20:41)
[2017-12-29] MEDS: AMLODIPINE 5 MG TABLET PO SCH (09:14)
[2017-12-29 16:00] VITALS: BP 125/69
--- NOTE | 2017-12-29 20:00 | NUR ---
Patient received in bed, reading magazines. AAO X2 by name and date of . No acute distress or SOB noted. Able to makes needs known. On room air. Brief assessment done. No Complain of pain at this time. Safety measures maintained. Bed in low position, brake on, side rails upx2. Call light and personal belongings within reach. Continue to monitor.
[2017-12-29 20:08] VITALS: BP 114/66
[2017-12-30] MEDS: ACETAMINOPHEN 325 MG TABLET PO PRN ×2 (03:32→22:19)
[2017-12-30 06:08] VITALS: BP 120/68
[2017-12-30] MEDS: PANTOPRAZOLE SODIUM 40 MG TABLET.DR PO SCH (06:20)
--- NOTE | 2017-12-30 07:42 | NUR ---
End of the shift note Patient was stable last night. 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 VS stable. No sign of acute distress or SOB noted. On room air. No complain of pain. Medication given as ordered. Safety measures maintained. Fall precaution maintained. kept her clean and dry. Applied Z Guard on her skin folds. Both heels off load by a pillow. All needs attended promptly. Bed brake and alarm on, side rails upx3. Call light and personal belonging within reach. Continue to monitor and will endorse to the day shift nurse accordingly.
[2017-12-30 08:00] VITALS: BP 126/57
[2017-12-30] MEDS: [UNRECOGNIZED DRUG - OTHER] PO SCH ×4 (09:01→20:24)
[2017-12-30] MEDS: [UNRECOGNIZED DRUG - OTHER] PO SCH ×4 (09:01→20:24)
[2017-12-30] MEDS: ROPINIROLE 5 MG PO SCH ×4 (09:01→20:24)
[2017-12-30] MEDS: AMLODIPINE 5 MG TABLET PO SCH (09:02)
--- NOTE | 2017-12-30 13:16 | NUR ---
INTERDISCIPLINARY TEAM CONFERENCE
[2017-12-30 16:00] VITALS: BP 128/59
[2017-12-30 20:07] VITALS: BP 110/64
[2017-12-30] MEDS: DOCUSATE SODIUM 100 MG CAPSULE PO SCH (20:23)
--- NOTE | 2017-12-30 20:52 | NUR ---
Received pt at beginning of shift, AAO x 1 to self. No acute distress noted. Verbally responsive and able to make needs known. Denies pain or discomfort at this time. All safety measures and fall precautions maintained. Call light and all personal belongings within reach. Will continue to monitor.
[2017-12-31 05:24] VITALS: BP 142/60
[2017-12-31] MEDS: PANTOPRAZOLE SODIUM 40 MG TABLET.DR PO SCH (06:02)
[2017-12-31] MEDS: LEVOTHYROXINE SODIUM 25 MCG TABLET PO SCH (06:02)
[2017-12-31 06:49] LABS: BASOPHILS # (AUTO) 0.1 K/uL (0.0-8.0); EOSINOPHILS # (AUTO) 0.2 K/uL (0.0-0.7); EOSINOPHILS % (AUTO) 3.2 % (0.0-7.0); HEMATOCRIT 39.5 % (31.2-41.9); HEMOGLOBIN 13.5 g/dL (10.9-14.3); LYMPHOCYTES # (AUTO) 2.1 K/uL (20.0-40.0); LYMPHOCYTES % (AUTO) 30.1 % (20.5-51.5); MEAN CORPUSCULAR HEMOGLOBIN 34.5 uug (24.7-32.8); MEAN CORPUSCULAR HGB CONC 34 g/dL (32.3-35.6); MEAN CORPUSCULAR VOLUME 100.9 fL (75.5-95.3); MONOCYTES # (AUTO) 0.6 K/uL (2.0-10.0); MONOCYTES % (AUTO) 8.2 % (0.0-11.0); NEUTROPHILS % (AUTO) 57.5 % (38.5-71.5); PLATELET COUNT (AUTO) 328 K/uL (179-408); RED BLOOD CELL COUNT(AUTO) 3.92 MIL/uL (3.63-4.92); WHITE BLOOD COUNT (AUTO) 6.9 K/uL (3.8-11.8)
[2017-12-31 07:32] LABS: ALANINE AMINOTRANSFERASE 23 U/L (14-59); ALKALINE PHOSPHATASE 91 U/L (50-136); ASPARTATE AMINOTRANSFERASE 22 U/L (15-37); BILIRUBIN,TOTAL 0.5 mg/dL (0.2-1.0); CARBON DIOXIDE 30 mmol/L (21-32); CHLORIDE 101 mmol/L (98-107); CREATININE 1.1 mg/dL (0.6-1.3); GLUCOSE 106 mg/dL (74-106); PHOSPHOROUS 3.9 mg/dL (2.5-4.9); POTASSIUM 4.1 mmol/L (3.5-5.1); TOTAL PROTEIN, SERUM 7.6 g/dL (6.4-8.2); UREA NITROGEN, BLOOD 18 mg/dL (7-18)
[2017-12-31 09:00] VITALS: BP 137/69
--- NOTE | 2017-12-31 09:00 | NUR ---
Patient awake, alert, Assisted to sit on the wheelchair to have breakfast. Patient denies any pain or discomfort at this time. Call light placed within reach. Assisted with her needs.
[2017-12-31] MEDS: MULTIVITAMINS,THERAPEUTIC TABLET PO SCH (09:04)
[2017-12-31] MEDS: [UNRECOGNIZED DRUG - OTHER] PO SCH ×4 (09:04→20:24)
[2017-12-31] MEDS: [UNRECOGNIZED DRUG - OTHER] PO SCH ×4 (09:04→20:24)
[2017-12-31] MEDS: ROPINIROLE 5 MG PO SCH ×4 (09:04→20:24)
[2017-12-31] MEDS: AMLODIPINE 5 MG TABLET PO SCH (09:10)
[2017-12-31 20:00] VITALS: BP 129/59
[2017-12-31] MEDS: DOCUSATE SODIUM 100 MG CAPSULE PO SCH (20:23)
[2017-12-31] MEDS: ACETAMINOPHEN 325 MG TABLET PO PRN (23:53)
[2018-01-01] MEDS: PANTOPRAZOLE SODIUM 40 MG TABLET.DR PO SCH (06:16)
[2018-01-01] MEDS: LEVOTHYROXINE SODIUM 25 MCG TABLET PO SCH (06:16)
[2018-01-01 06:22] VITALS: BP 120/61
--- NOTE | 2018-01-01 06:24 | NUR ---
End of the shift note Patient was stable t/o the shift last night. VS stable. No sign of acute distress or SOB noted. On room air. No complain of pain. Medication given as ordered. Safety measures maintained. Fall precaution maintained. Diaper changed. kept her clean and dry. Applied Z Guard on her skin folds. Both heels off load by a pillow. All needs attended promptly. Bed brake and alarm on, side rails upx3. Call light and personal belonging within reach. Continue to monitor and will endorse to the day shift nurse accordingly.
[2018-01-01] MEDS: ROPINIROLE 5 MG PO SCH ×4 (08:43→21:13)
[2018-01-01] MEDS: AMLODIPINE 5 MG TABLET PO SCH (08:43)
[2018-01-01] MEDS: [UNRECOGNIZED DRUG - OTHER] PO SCH ×4 (08:43→21:13)
[2018-01-01] MEDS: [UNRECOGNIZED DRUG - OTHER] PO SCH ×4 (08:43→21:14)
[2018-01-01] MEDS: MULTIVITAMINS,THERAPEUTIC TABLET PO SCH (08:43)
[2018-01-01 16:11] VITALS: BP 104/63
--- NOTE | 2018-01-01 18:40 | NUR ---
MD STRATTON PSYCHIATRIST IN TODAY TO EVAL HER. HER SAYS HE WILL NOT PRESCRIBE ANY MEDICATIONS AT THIS TIME
[2018-01-01 19:31] VITALS: BP 128/55
[2018-01-01] MEDS: DOCUSATE SODIUM 100 MG CAPSULE PO SCH (21:13)
--- NOTE | 2018-01-02 03:43 | NUR ---
received in bed at beginning of the shift. compliant with the care. no acute distress noted. took meds without any problem. PM care given. incontinent of urine. no BM this shift. OOB with walker without calling. refused to go back in bed. assisted back, able to redirect. voiding also in the BR. VSS. aaox2-3. no signs of agitation or restlessness noted. kept comfortable. will monitor patient.fall precautions maintained.
[2018-01-02 06:19] VITALS: BP 135/67
[2018-01-02 06:20] VITALS: BP 135/67
[2018-01-02] MEDS: PANTOPRAZOLE SODIUM 40 MG TABLET.DR PO SCH (06:31)
[2018-01-02] MEDS: LEVOTHYROXINE SODIUM 25 MCG TABLET PO SCH (06:31)
--- NOTE | 2018-01-02 06:51 | NUR ---
slept almost towards the end of my shift. no acute distress noted. VSS. will monitor patient. siderails up for safety.
[2018-01-02] MEDS: MULTIVITAMINS,THERAPEUTIC TABLET PO SCH (09:18)
[2018-01-02] MEDS: ROPINIROLE 5 MG PO SCH ×2 (09:19→13:04)
[2018-01-02] MEDS: [UNRECOGNIZED DRUG - OTHER] PO SCH ×2 (09:19→13:04)
[2018-01-02] MEDS: AMLODIPINE 5 MG TABLET PO SCH (09:19)
[2018-01-02] MEDS: [UNRECOGNIZED DRUG - OTHER] PO SCH ×2 (09:19→13:03)
--- NOTE | 2018-01-02 16:15 | NUR ---
D/C TO HOME WITH FAMILY. MEDS FROM PHARMACY GIVEN BACK TO FAMILY. SKIN PICS TAKEN NOTHING REMARKABLE NOTED. D/C ORDER ON FILE. VSS. BELONGINGS LIST RECONCILLED. EXPLAINED D/C CARE TO DAUGHTER AND SHE VERBALIZED UNDERSTANDING
[2018-01-02 16:38] VITALS: BP 123/76
== END 2018-01-02 16:15 | disposition home or self-care (01) | DRG 56 ==
PROVIDERS: ADMIT Physical Medicine & Rehabilitation Pain Medicine; ATTEND Physical Medicine & Rehabilitation Pain Medicine
DX: G20 Parkinson's disease (principal); G92 Toxic encephalopathy; N39.0 Urinary tract infection, site not specified; D68.59 Other primary thrombophilia; I48.92 Unspecified atrial flutter; G30.9 Alzheimer's disease, unspecified; R56.9 Unspecified convulsions; F02.80 Dementia in other diseases classified elsewhere, unspecified severity, without behavioral disturbance, psychotic disturbance, mood disturbance, and anxiety; R55 Syncope and collapse; R53.1 Weakness; D75.89 Other specified diseases of blood and blood-forming organs; E03.9 Hypothyroidism, unspecified; E66.9 Obesity, unspecified; Z68.31 Body mass index [BMI] 31.0-31.9, adult; E87.6 Hypokalemia; F32.9 Major depressive disorder, single episode, unspecified; R73.03 Prediabetes; R94.31 Abnormal electrocardiogram [ECG] [EKG]; I08.1 Rheumatic disorders of both mitral and tricuspid valves; Z63.4 Disappearance and death of family member
CPT/HCPCS: 36415; 70030-TC; 83735; 84100; 85025; 92523; 92610; 97110; 97112; 97116; 97530; 97535; A4663; J0696; J1650; J2060; J7050; J7060